=== PATIENT | female | born 2000 | race Caucasian/White ===

== ENCOUNTER 2023-01-01 06:50 | Emergency (ER) | payer BC ==
[2023-01-01] MEDS: ALBUTEROL SO4 2.5/IPRATROPIUM 0.5 INH SOL 3 ML VIAL.NEB. NEB SCH ×4 (07:00→08:08)
[2023-01-01] MEDS ORDERED: methylPREDNISolone NA SUCC 125 MG/2 ML VIAL IVPB ONE (07:03)
[2023-01-01] MEDS ORDERED: MAGNESIUM SULFATE IN WATER 2 GM/50 ML IVPB IVPB ONE (07:04)
[2023-01-01 07:12] VITALS: BP 133/88; BMI 26.5
[2023-01-01] MEDS ORDERED: methylPREDNISolone NA SUCC 125 MG/2 ML VIAL ONE (07:13)
[2023-01-01] MEDS ORDERED: MAGNESIUM SULF 50% (8.12 MEQ/2 ML-1 GM VIAL) ONE (07:51)
[2023-01-01 09:16] VITALS: PULSE 128; RESP 16; TEMP 99.4
== END 2023-01-01 10:00 | disposition home or self-care (01) ==
LOC: FER 06:50
PROC: 3E033GC Introduction of Other Therapeutic Substance into Peripheral Vein, Percutaneous Approach (ICD-10-PCS; principal; 2023-01-01)
PROC: 3E033GC Introduction of Other Therapeutic Substance into Peripheral Vein, Percutaneous Approach (ICD-10-PCS; 2023-01-01)
PROC: 3E0F7GC Introduction of Other Therapeutic Substance into Respiratory Tract, Via Natural or Artificial Opening (ICD-10-PCS; 2023-01-01)
DX: R06.00 Dyspnea, unspecified (principal); J45.902 Unspecified asthma with status asthmaticus; J02.9 Acute pharyngitis, unspecified
CPT/HCPCS: 99291